=== PATIENT | male | born 1990 | race Asian ===

== ENCOUNTER 2024-10-10 11:51 | Emergency (ER) | payer BC, SELFPAY ==
[2024-10-10 11:53] VITALS: BP 160/114
--- NOTE | 2024-10-10 12:19 | ED.GENMED ---
History of Present Illness
General
Chief Complaint: Abdominal Pain
Source: patient
Exam Limitations: none
Time Seen by Provider: 10/10/24 12:11
History of Present Illness
History of Present Illness:
34yoM with no significant past medical history presenting for evaluation of abdominal pain. Patient went to bed feeling normal yesterday evening. He woke up around 3am with pain in his periumbilical/suprapubic region. Pain is described as
bloating. He initially thought he had trapped gas. He was able to have a normal bowel movement without any relief. Pain has been constant throughout the morning so he came to the ED. He is concerned that he may have appendicitis. He denies any
fevers, vomiting, diarrhea, testicular pain, dysuria. No previous abdominal surgeries. No sick contacts or suspicious food intake.
Phy Exam
Physical Exam
Physical Exam:
Appears uncomfortable, non-toxic
General Physical Exam
General Presentation: well appearing
General Skin: warm and dry
General Habitus: normal
General Mental: alert
ENT Exam
ENT Exam: normocephalic
Cardiovascular Exam
Cardiovascular Exam: regular rate/rhythm
Pulmonary Exam
Pulmonary Exam: lungs clear, no respiratory distress, no rales, no crackles, no rhonchi and no wheezing
Gastrointestinal Exam
Gastrointestinal Exam: soft, non distended and other (+Tenderness in periumbilical region. No RLQ tenderness. Abdomen soft, non-distended. No rebound or guarding.)
Neurological Exam
Neurological Exam: alert
Nicola Coma Scale
Eye Opening: Spontaneous
Verbal Response: Oriented
Motor Response: Obeys Commands
GCS Total Score: 15
Skin Exam
Skin Exam: normal color and warm/dry
Psychiatric Exam
Psychiatric Exam: normal mood/affect
Course
Orders/Labs/Results
Orders:
Orders
10/10/24 12:19
CT Abd/pelvis W Iv Cont Urgent
Comment:
Reason For Exam: periumbilical pain
0.9% Sodium Chloride 1000 ml [Nss] 1,000 ml IV BOLUS
Ketorolac [Toradol] 15 mg IV NOW STA
10/10/24 12:26
Complete Blood Count/With Diff Urgent
Comprehensive Metabolic Panel Urgent
Lipase Urgent
10/10/24 15:18
Consult Surgery [SURGICAL CONSULT] Urgent
Consulting Provider: Trey Celis
Was physician already notified: Yes
Abnormal Lab Results
10/10/24
12:26
RBC 7.00 H 10^6/uL
(4.70-6.10)
MCV 58.7 L fL
(80.0-94.0)
MCH 19.0 L pg
(27.0-31.0)
MCHC 32.4 L g/dL
(33.0-37.0)
RDW 18.7 H %
(11.5-14.5)
Absolute Neuts (auto) 7.3 H 10^3/uL
(1.4-6.5)
Neutrophils % 79.7 H %
(42.2-75.2)
Lymphocytes % 12.6 L %
(20.5-51.1)
Potassium 3.4 L mmol/L
(3.5-5.1)
Glucose 120 H mg/dl
(70-99)
Calcium 10.8 H mg/dl
(8.4-10.2)
Total Protein 8.3 H g/dl
(6.3-8.2)
Albumin 5.1 H g/dl
(3.5-5.0)
10/10/24 12:26
10/10/24 12:26
Vital Signs
Initial and Last Documented VS:
Initial Vital Signs
Temp Pulse Resp BP Pulse Ox
97.7 F 78 20 160/114 99
10/10/24 11:53 10/10/24 11:53 10/10/24 11:53 10/10/24 11:53 10/10/24 11:53
Last Documented Vital Signs
Temp Pulse Resp BP Pulse Ox
97.7 F 78 20 160/114 99
10/10/24 11:53 10/10/24 11:53 10/10/24 11:53 10/10/24 11:53 10/10/24 12:22
MDM/Problems Addressed
Differential Diagnosis Includes:
34yoM here with abd pain. Woke up him from sleep at 3am. C/o bloating pain in suprapubic/periumbilical region. He is hypertensive with otherwise normal vitals. He appears uncomfortable but is non-toxic. No signs of peritonitis on abdominal exam.
Differential diagnosis includes but is not limited to: Constipation, gastroenteritis, appendicitis
Initial ED plan: Check abdominal labs and CT abdomen. IV Toradol for pain.
*Pulse Oximetry
SaO2: 99
Oxygen Mode of Delivery: Room air
*Critical Care Note
Total Time (30-74mins, 75-104mins- exclusive of procedures): Not Applicable
Update Note
Update Note:
Labs overall unremarkable including normal white count. CT shows distended appendix with possible appendicolith. No associated wall thickening or periappendiceal inflammatory stranding to suggest acute appendicitis. Pain improved on reassessment.
Patient was evaluated by general surgeon, Dr. Celis. Patient was offered surgery but prefers to trial course of antibiotics. Patient may be discharged on Augmentin per general surgery. He was advised to f/u with surgery closely as an outpatient
and strict ED return precautions reviewed. Patient discharged in stable condition.
ED Attending Note
-
Portions of this chart may have been created with voice recognition software.� Occasional wrong word or��sound alike� substitutions may have occurred due to the inherent limitations of voice recognition software.
Discharge Plan
Departure
Patient Disposition: Home (Routine Discharge)
Date of Disposition: 10/10/24
Time of Disposition: 15:56
Patient with high blood pressure during this ER visit?: Yes
Discharge Problem:
Abdominal pain, Abnormal abdominal CT scan
Instructions: Abdominal Pain
Prescriptions:
New
amoxicillin-pot clavulanate 875-125 mg tablet
1 tab PO BID Qty: 14 0RF
No Action
calcium carbonate [Tums] 200 mg calcium (500 mg) Tablet,Chewable
200 mg PO BIDPRN PRN (Reason: gerd)
Referrals:
NONE,* [Family Provider, Internal Medicine]
Trey Celis MD [Active, Surgical]
Activity Restrictions/Additional Instructions:
Take antibiotics as prescribed.
Please follow-up with general surgery. Return to the ER with any worsening symptoms including severe pain or fevers.
Interventions
Interventions:
*Risk Screen - Suicide Last Done: 10/10/24 16:05
*General Assessment Last Done: 10/10/24 11:53
*Neglect/Abuse Screening Last Done: 10/10/24 15:36
*ED- Fall Risk Assessment Last Done: 10/10/24 16:05
*ED COVID-19 Vaccine History Last Done: 10/10/24 16:05
*Nursing Disposition Last Done: 10/10/24 16:05
MJ-Yxgndt-Tbnzvzafxn Assessment Last Done: 10/10/24 14:16
Discharge Date and Time
Discharge Date/Time: 10/10/24 16:06
Print Language: SLOVENIAN
[2024-10-10] MEDS: TORADOL 15 MG IV (12:32)
[2024-10-10] MEDS: NSS 1000 IV (12:33)
[2024-10-10 13:06] LABS: % Basophils 0.3 % (0-2); % Eosinophils 0.2 % (0-6); % Immature Granulocytes 0.4 % (0-0.5); % Lymphocytes 12.6 % (20.5-51.1); % Monocytes 6.8 % (1.7-9.3); % Neutrophils 79.7 % (42.2-75.2); Absolute Lymphocytes 1.2 10^3/uL (1.2-3.4); Absolute Monocytes 0.6 10^3/uL (0.1-0.6); Absolute Neutrophils 7.3 10^3/uL (1.4-6.5); Hematocrit 41.1 % (39.0-52.0); Hemoglobin 13.3 g/dL (13.0-18.0); Mean Corp Hgb Conc. 32.4 g/dL (33.0-37.0); Mean Corpuscular Volume 58.7 fL (80.0-94.0); Nucleated Red Blood Cells % 0 % (-); Platelet Count 261 10^3/uL (130-400); Red Cell Dist. Width 18.7 % (11.5-14.5); White Blood Cell Count 9.2 10^3/uL (4.8-10.8)
[2024-10-10 13:32] LABS: ALT (SGPT) 20 U/L (0-50); AST (SGOT) 19 U/L (17-59); Albumin 5.1 g/dl (3.5-5.0); Alkaline Phosphatase 74 U/L (38-126); Blood Urea Nitrogen 12 mg/dl (9-20); Calcium 10.8 mg/dl (8.4-10.2); Carbon Dioxide 23 mmol/L (22-30); Chloride 106 mmol/L (98-107); Glucose 120 mg/dl (70-99); Lipase 46 U/L (23-300); Potassium 3.4 mmol/L (3.5-5.1); Sodium 143 mmol/L (135-145); Total Protein 8.3 g/dl (6.3-8.2); eGFR > 60.00
[2024-10-10 16:05] VITALS: BMI 28.9
--- NOTE | 2024-10-10 16:23 | CON.GS ---
Consultation
-
Date/Time Consultation Requested: 10/10/2024 4 PM
Date/Time Consultation Performed: 10/10/2024 4 PM
Requesting Provider: Emergency department
Performing Provider: Dr. Celis
Reason for Consultation: Periumbilical pain
Medical History
-
Chief Complaint: Lower abdominal pain
History of Present Illness:
This is a 34-year-old male who presents with a 12-hour history of lower crampy dull lower abdominal pain and feeling 'bloated'. The patient denies Fever, Chest Pain, Shortness Of Breath, Nausea, Vomiting, changes in urinary and bowel habits,
unintentional weight loss. He did get 1 dose of Dilaudid here and his pain has gone.
Past Medical History
Past Medical History: Reviewed & Noncontributory
Past Surgical History: None
Social History
Tobacco: Non-Smoker
Family History
Family History: Reviewed & Not Pertinent
Allergies / Home Medications
Allergy/AdvReac Type Severity Reaction Status Date / Time
No Known Allergies Allergy Unverified 10/10/24 11:53
�Medication �Instructions �Recorded �Confirmed �Type
amoxicillin 875 mg-potassium 1 tab PO BID #14 tabs 10/10/24 Rx
clavulanate 125 mg tablet
calcium carbonate (Tums) 200 mg PO BIDPRN PRN gerd 10/10/24 10/10/24 History
Review of Systems
-
All other systems: Negative unless noted
A 10 point review of systems was completed, and was negative except as per HPI.
Physical Exam
Vital Signs
Temp Pulse Resp BP Pulse Ox
97.7 F 78 20 160/114 99
10/10/24 11:53 10/10/24 11:53 10/10/24 11:53 10/10/24 11:53 10/10/24 12:22
10/09/24 10/10/24 10/11/24
06:59 06:59 06:59
Actual Weight 94 kg
Body Mass Index (BMI) 28.9
Lab Results
10/10/24 12:26
10/10/24 12:
WBC 9.2 10^3/uL (4.8-10.8) 10/10/24 12:
Hgb 13.3 g/dL (13.0-18.0) 10/10/24 12:
Hct 41.1 % (39.0-52.0) 10/10/24 12:
Plt Count 261 10^3/uL (130-400) 10/10/24 12:
Abs Immat Gran (auto) 0.0 10^3/uL (0-0.05) 10/10/24 12:
Neutrophils % 79.7 % (42.2-75.2) H 10/10/24 12:
Physical Exam
General: Well Developed
HEENT: Normocephalic
Respiratory: Non Labored Respirations
GI: Soft, Non Tender and Non Distended
Data Reviewed
-
CT Scan: Image Personally Visualized and interpreted, Report Reviewed by me, Discussed with Physician and Discussed with Patient
Labs: Labs Reviewed by me and Discussed with Patient
Total Time Spent with Patient (in minutes): 30
Assessment / Plan
-
This is a 34-year-old male who presents with a less than 1 day history of abdominal pain and bloating. His pain however has now gone away. He is afebrile and his vital signs are stable. His exam is benign and he has no focal tenderness. His
blood work is also unremarkable and he has no leukocytosis. He did undergo a CT scan which demonstrated a 'possible appendicolith' but there is air in the tip and no periappendiceal fat stranding.
I did review the natural history of appendicitis though explained to the patient that I question the diagnosis given his imaging findings, benign exam and blood work. The patient agrees and would like to avoid surgery if possible.
For now we will treat this as a nonoperative management of appendicitis.
Recommend a 7-day course of antibiotics, patient to follow-up with me as an outpatient.
Okay to p.o. challenge and if patient tolerates it discharge home. I did review signs and symptoms that should prompt him to return to our ED. He understands that if he does have recurrence of the pain that a diagnostic laparoscopy/laparoscopic
appendectomy would be advisable.
All questions answered, patient agreeable to plan of care above.
== END 2024-10-10 16:06 | disposition home or self-care (01) ==
LOC: EMR 11:51
PROVIDERS: Physician Assistant; CONSULT PHYSICIAN Surgery; EMERGENCY PHYSICIAN Emergency Medicine
DX: K37 Unspecified appendicitis (principal)
CPT/HCPCS: 96374; 96361; 99284; 74177; 80053; 83690; 85025; Q9967